=== PATIENT | male | born 1960 | race Caucasian/White ===

== ENCOUNTER 2021-04-03 20:02 | Observation (INO) | payer MEDICARE, OTHER ==
[~2021-04-03] VITALS: Ht 162.6 cm; Wt 78.9 kg
[2021-04-03] MEDS ORDERED: MORPHINE 4 MG SYG IVP ONE (22:00)
[2021-04-03] MEDS ORDERED: ONDANSETRON 4MG INJ IVP ONE (22:00)
[2021-04-03] MEDS ORDERED: LACTATED RINGERS 1000ML 1,000 ML IV ONE (22:00)
[2021-04-03 22:44] LABS: BASOPHILS % (AUTO) 0.4 % (0.0-5.0); HEMATOCRIT 33.4 % (42-54); LYMPHOCYTES % (AUTO) 5.1 % (21.0-51.0); MEAN CORPUSCULAR HEMOGLOBIN 34.8 pg (27.0-33.0); MEAN CORPUSCULAR HGB CONC 36.2 g/dL (32.0-36.0); MONOCYTES % (AUTO) 4.8 % (3.0-13.0); NEUTROPHILS % (AUTO) 83.2 % (40.0-77.0); NUCLEATED RED BLOOD CELLS 0.2 % (0.0-0.19); PLATELET COUNT (AUTO) 172 K/uL (130-400); RED BLOOD CELL COUNT(AUTO) 3.48 MIL/uL (4.50-6.20); RED CELL DISTRIBUTION WIDTH 14.1 % (11.0-15.5); WHITE BLOOD COUNT (AUTO) 8.4 K/uL (4.8-10.8)
[2021-04-03 22:58] LABS: ALBUMIN 2.8 g/dL (3.5-5.0); BILIRUBIN,TOTAL 1.2 mg/dL (0.2-1.0); POTASSIUM 3.6 mmol/L (3.5-5.1); TOTAL PROTEIN, SERUM 6.7 g/dL (6.0-8.3)
[2021-04-04] MEDS: 0.9%NACL 1000ML 1,000 ML IV SCH ×3 (02:56→19:44)
[2021-04-04 08:30] VITALS: BP 142/75
[2021-04-04] MEDS: PANTOPRAZOLE 40 MG/VIAL IVP SCH (09:56)
[2021-04-04] MEDS: ONDANSETRON 4MG INJ IVP PRN ×2 (09:56→17:18)
[2021-04-04 11:45] VITALS: BP 104/58
[2021-04-04] MEDS: NYSTATIN 100000 UNIT/ML 5ML UDCUP PO SCH ×3 (12:20→19:43)
[2021-04-04 15:40] VITALS: BP 105/65
[2021-04-04 19:34] VITALS: BP 116/55
[2021-04-04 23:49] VITALS: BP 106/58
[2021-04-05] MEDS: ONDANSETRON 4MG INJ IVP PRN ×3 (01:48→17:11)
[2021-04-05 03:51] VITALS: BP 106/58
[2021-04-05] MEDS: 0.9%NACL 1000ML 1,000 ML IV SCH ×2 (06:46→17:03)
[2021-04-05 07:17] LABS: HEMATOCRIT 28.4 % (42-54); MEAN CORPUSCULAR HEMOGLOBIN 34.5 pg (27.0-33.0); MEAN CORPUSCULAR HGB CONC 34.2 g/dL (32.0-36.0); MEAN CORPUSCULAR VOLUME 101.1 fL (79-99); NUCLEATED RED BLOOD CELLS 0.8 % (0.0-0.19); RED BLOOD CELL COUNT(AUTO) 2.81 MIL/uL (4.50-6.20); RED CELL DISTRIBUTION WIDTH 14.5 % (11.0-15.5); WHITE BLOOD COUNT (AUTO) 5.1 K/uL (4.8-10.8)
[2021-04-05 07:39] LABS: CREATININE 0.7 mg/dL (0.5-1.5)
[2021-04-05 07:45] VITALS: BP 112/54
[2021-04-05 07:50] LABS: POTASSIUM 2.8 mmol/L (3.5-5.1)
[2021-04-05] MEDS: NYSTATIN 100000 UNIT/ML 5ML UDCUP PO SCH ×4 (09:18→19:17)
[2021-04-05] MEDS: PANTOPRAZOLE 40 MG/VIAL IVP SCH (09:19)
[2021-04-05 11:35] VITALS: BP 110/59
[2021-04-05 15:30] VITALS: BP 136/60
[2021-04-05 20:00] VITALS: BP 120/56
[2021-04-05] MEDS: POTASSIUM CHLORIDE 20MEQ/100ML 100 ML IV PRN ×2 (20:58→22:03)
[2021-04-05] MEDS ORDERED: POTASSIUM CHLORIDE 10% ELIXIR 20 MEQ/15 ML UDCUP PO PRN (21:00)
[2021-04-05] MEDS ORDERED: LIDOCAINE HCL-MPF 1% 2ML VIAL IV PRN (21:00)
[2021-04-06] VITALS: BP 108/58
[2021-04-06] MEDS: 0.9%NACL 1000ML 1,000 ML IV SCH (02:18)
[2021-04-06 04:21] VITALS: BP 118/60
[2021-04-06] MEDS: POTASSIUM CHLORIDE 20MEQ/100ML 100 ML IV PRN (07:07)
[2021-04-06 08:07] VITALS: BP 114/56
[2021-04-06] MEDS: NYSTATIN 100000 UNIT/ML 5ML UDCUP PO SCH ×2 (09:00→13:00)
[2021-04-06] MEDS: PANTOPRAZOLE 40 MG/VIAL IVP SCH (09:35)
[2021-04-06 12:00] VITALS: BP 128/71
[2021-04-06] MEDS: KCL 20 MEQ ERTAB PO PRN ×3 (12:36→16:15)
[2021-04-06] MEDS ORDERED: HEPARIN PF LOCK 500 UNIT/5ML IV SCH ×2 (15:00→16:00)
[2021-04-06 16:25] VITALS: BP 131/77
== END 2021-04-06 16:30 | disposition home or self-care (01) ==
LOC: EDH 20:02 → EDHIP 22:15 → 3DH 04-04 08:41
PROVIDERS: ADMIT Internal Medicine Hematology & Oncology; ATTEND Internal Medicine Hematology & Oncology
DX: R11.2 Nausea with vomiting, unspecified (principal); E87.6 Hypokalemia; E86.0 Dehydration; B37.0 Candidal stomatitis; C90.00 Multiple myeloma not having achieved remission; E11.65 Type 2 diabetes mellitus with hyperglycemia; R53.1 Weakness; Z79.899 Other long term (current) drug therapy
CPT/HCPCS: 36415 ×3; 71045; 80048; 80053; 82550; 83690; 84132; 84484; 85025; 85027; 96361 ×4; 96365; 96366 ×2; 96375 ×3; 96376 ×3; 97039 ×2; 97116 ×2; 97161; 99284; C9113 ×3; G0378 ×64; J1642; J2270; J2405 ×6; J3480 ×3; J7120